=== PATIENT | female | born 1995 | race Caucasian/White ===

== ENCOUNTER 2017-02-03 01:17 | Emergency (ER) | payer MEDICAID ==
[2011-12-31 22:38] VITALS: BMI 18.8
[2017-02-03 02:03] LABS: BASOPHILS 0.2 % (0.0-2.0); EOSINOPHILS 0.3 % (0-7); HEMATOCRIT 37.4 % (36.0-48.0); HEMOGLOBIN 11.8 g/dL (12-16); IMMATURE GRANULOCYTES 0.2 % (0-5); LYMPHOCYTES 25.2 % (15-50); MCHC 31.6 g/dL (31.0-37.0); MCV 79.2 fL (80.0-100.0); MONOCYTES 10.5 % (2-11); NEUTROPHILS 63.6 % (40-80); PLATELET COUNT 169 10x3/uL (130-400); RBC 4.72 10x6/uL (4.00-5.40); RDW 16.5 % (11.5-14.5)
[2017-02-03 02:38] LABS: ALKALINE PHOSPHATASE 66 U/L (46-116); ALT (SGPT) 19 U/L (10-68); BILIRUBIN - TOTAL 0.21 mg/dL (0.2-1.3); CALC OSMOLALITY 277 mosm/kg (275-300); CALCIUM 8.3 mg/dL (8.5-10.1); CARBON DIOXIDE 24.2 mmol/L (21.0-32.0); CHLORIDE - SERUM 106 mmol/L (98-107); CREATININE - SERUM 0.7 mg/dL (0.6-1.3); GLUCOSE 106 mg/dL (74-106); POTASSIUM - SERUM 3.7 mmol/L (3.5-5.1); PROTEIN - SERUM 7.5 g/dL (6.4-8.2); SODIUM 140 mmol/L (136-145); UREA NITROGEN 10 mg/dL (7-18); eGFR NON AFRICAN AMERICAN > 90 mL/min (90-120)
== END 2017-02-03 03:00 | disposition home or self-care (01) ==
LOC: D.ER 01:17
PROVIDERS: Emergency Medicine
DX: R11.10 Vomiting, unspecified (principal); F10.129 Alcohol abuse with intoxication, unspecified; D64.9 Anemia, unspecified

== ENCOUNTER 2017-06-04 18:05 | Emergency (ER) | payer MEDICAID ==
[2011-12-31 22:38] VITALS: BMI 18.8
[2017-06-04 19:05] LABS: BASOPHILS 0.3 % (0-2); EOSINOPHILS 0.1 % (0-7); HEMATOCRIT 40.8 % (36.0-48.0); HEMOGLOBIN 13.1 g/dL (12-16); IMMATURE GRANULOCYTES 0.1 % (0-5); LYMPHOCYTES 14.2 % (15-50); MCH 25.5 pg (26.0-34.0); MCHC 32.1 g/dL (31.0-37.0); MCV 79.5 fL (80.0-100.0); MEAN PLATELET VOLUME 11.7 fL (7.4-10.4); MONOCYTES 9.6 % (2-11); NEUTROPHILS 75.7 % (40-80); PLATELET COUNT 190 10x3/uL (130-400); RBC 5.13 10x6/uL (4.00-5.40); RDW 15.1 % (11.5-14.5); WBC 7.7 10x3/uL (4.8-10.8)
[2017-06-04 20:19] LABS: APPEARANCE CLEAR (CLEAR); BILIRUBIN NEGATIVE (NEGATIVE); COLOR DK YELLOW (YELLOW); GLUCOSE 50 mg/dL (NEGATIVE); KETONE NEGATIVE (NEGATIVE); LEUKOCYTE ESTERASE NEGATIVE (NEGATIVE); NITRITE NEGATIVE (NEGATIVE); PROTEIN NEGATIVE (NEGATIVE); SPECIFIC GRAVITY 1.015 (1.005-1.020); UROBILINOGEN NORMAL (NORMAL)
[2017-06-04 20:21] LABS: BACTERIA FEW /hpf (NONE SEEN); EPITHELIAL CELLS 0-5 /hpf (0-5); RED CELLS - URINE 0-5 /hpf (0-5); WHITE CELLS - URINE 0-5 /hpf (0-5)
[2017-06-04 20:23] LABS: MUCUS <1+ /lpf (NONE SEEN)
[2017-06-04 20:42] LABS: CALC OSMOLALITY 277 mosm/kg (275-300); CALCIUM 8.8 mg/dL (8.5-10.1); CARBON DIOXIDE 29.4 mmol/L (21.0-32.0); CHLORIDE - SERUM 102 mmol/L (98-107); CREATININE - SERUM 0.8 mg/dL (0.6-1.3); GLUCOSE 116 mg/dL (74-106); POTASSIUM - SERUM 3.4 mmol/L (3.5-5.1); SODIUM 140 mmol/L (136-145); UREA NITROGEN 7 mg/dL (7-18); eGFR NON AFRICAN AMERICAN > 90 mL/min (90-120)
[2017-06-04 22:00] LABS: APPEARANCE - CSF CLEAR
[2017-06-04 22:01] LABS: RBC - CSF 0 cmm (0-0)
[2017-06-04 22:08] LABS: GLUCOSE - CSF 65 MG/DL (40-75); PROTEIN - CSF 30 MG/DL (12-60)
== END 2017-06-04 22:53 | disposition home or self-care (01) ==
LOC: D.ER 18:05
PROVIDERS: Emergency Medicine Emergency Medical Services; Family Medicine
DX: R50.9 Fever, unspecified (principal); M79.1 Myalgia; M43.6 Torticollis; M54.5 Low back pain; R19.7 Diarrhea, unspecified

== ENCOUNTER 2017-12-09 15:27 | Emergency (ER) | payer MEDICAID ==
[2011-12-31 22:38] VITALS: BMI 18.8
== END 2017-12-09 18:40 | disposition home or self-care (01) ==
LOC: D.ER 15:27
DX: J11.1 Influenza due to unidentified influenza virus with other respiratory manifestations (principal)

== ENCOUNTER 2020-05-01 17:34 | Emergency (ER) | payer MEDICAID ==
[~2020-05-01] VITALS: Ht 165.1 cm; Wt 52.3 kg
[2020-05-01 17:47] VITALS: Ht 165.1 cm; Wt 52.3 kg
[2020-05-01 19:00] LABS: BASOPHILS 0.1 % (0-2); EOSINOPHILS 0 % (0-7); HEMOGLOBIN 12.5 g/dL (12-16); IMMATURE GRANULOCYTES 0.3 % (0-5); LYMPHOCYTES 14.2 % (15-50); MCH 25.5 pg (26.0-34.0); MCHC 31.3 g/dL (31.0-37.0); MCV 81.6 fL (80.0-100.0); MEAN PLATELET VOLUME 11.4 fL (7.4-10.4); NEUTROPHILS 80.4 % (40-80); PLATELET COUNT 228 10x3/uL (130-400); RDW 16.3 % (11.5-14.5); WBC 12.9 10x3/uL (4.8-10.8)
[2020-05-01 19:27] LABS: CALC OSMOLALITY 270 mosm/kg (275-300); CALCIUM 8.6 mg/dL (8.5-10.1); CARBON DIOXIDE 26.7 mmol/L (21.0-32.0); CHLORIDE - SERUM 103 mmol/L (98-107); CREATININE - SERUM 0.9 mg/dL (0.6-1.3); GLUCOSE 90 mg/dL (74-106); SODIUM 136 mmol/L (136-145); UREA NITROGEN 9 mg/dL (7-18); eGFR NON AFRICAN AMERICAN 80 mL/min (90-120)
[2020-05-01 19:32] LABS: ALBUMIN 4.4 g/dL (3.4-5.0); ALKALINE PHOSPHATASE 57 U/L (30-120); ALT (SGPT) 24 U/L (10-68); AMYLASE - SERUM 60 U/L (25-115); PROTEIN - SERUM 7.8 g/dL (6.4-8.2)
[2020-05-01] MEDS ORDERED: AUGMENTIN 875-11 TAB PO (19:41)
[2020-05-01 19:56] VITALS: BP 111/76
== END 2020-05-01 19:56 | disposition home or self-care (01) ==
LOC: D.ER 17:34
PROVIDERS: Family Medicine
DX: K11.20 Sialoadenitis, unspecified (principal); R59.0 Localized enlarged lymph nodes; M54.2 Cervicalgia; Z72.0 Tobacco use